=== PATIENT | female | born 1950 | race Two or more races ===

== ENCOUNTER 2022-09-03 10:02 | Inpatient (IN) | payer MEDICARE, OTHER ==
[~2022-09-03] VITALS: Ht 162.6 cm; Wt 62.1 kg
--- NOTE | 2022-09-03 10:05 | NUR ---
REceived pt 72 yrs female came by julien from home c/o genralized weekness awake and fallow command respiration spont and easy
--- NOTE | 2022-09-03 10:19 | NUR ---
to ct scan of head
--- NOTE | 2022-09-03 10:28 | NUR ---
DR DOROTEO PRADHAN (ONCO) SENT THE PATIENT TO ER DUE TO HGB 5.9 DR PRADHAN TEL [phone] HOME HEALTH NURSE MICHELLE: TEL [phone] CHAVEZ. HOME HEALTH NURSE WILL CALL BACK AND PROVIDE DR CHAVEZ'S PHONE NUMBER.
--- NOTE | 2022-09-03 10:31 | NUR ---
DR JESSI CHAVEZ TEL [phone] THE PATIENT`S HH IS [facility]
--- NOTE | 2022-09-03 10:40 | NUR ---
INSERTED ANGO CATHETER G 18 ON RT FOR ARM UNBLE TO DROW BLOOD
--- NOTE | 2022-09-03 11:18 | NUR ---
covid antigen swab done and sent to the lab
[2022-09-03 11:21] LABS: ALANINE AMINOTRANSFERASE 48 U/L (12-78); ALBUMIN 3.6 g/dL (3.4-5.0); ALKALINE PHOSPHATASE 70 U/L (46-116); ASPARTATE AMINOTRANSFERASE 20 U/L (15-37); BILIRUBIN,DIRECT 0.1 mg/dL (0.0-0.2); BILIRUBIN,TOTAL 0.4 mg/dL (0.2-1.0); CALCIUM, SERUM 8.7 mg/dL (8.5-10.1); CARBON DIOXIDE 23 mmol/L (21-32); CHLORIDE 106 mmol/L (98-107); CREATININE 1.9 mg/dL (0.6-1.3); GLUCOSE 151 mg/dL (74-106); POTASSIUM 4.4 mmol/L (3.5-5.1); SODIUM SERUM 141 mmol/L (136-145); TOTAL PROTEIN, SERUM 6.8 g/dL (6.4-8.2); UREA NITROGEN, BLOOD 31 mg/dL (7-18)
--- NOTE | 2022-09-03 11:30 | NUR ---
MOVE SHEET SUBMITTED.
--- NOTE | 2022-09-03 12:20 | NUR ---
MID LINE G18 INSERTED BY PICC LINE NURSE RN AT BED SIDE PT TOLORATED PROCEDURE
[2022-09-03 12:43] LABS: BASOPHILS % (AUTO) 0.7 % (0.0-2.0); EOSINOPHILS % (AUTO) 1.4 % (0.0-6.0); LYMPHOCYTES # (AUTO) 1.4 K/uL (0.8-4.8); LYMPHOCYTES % (AUTO) 24.2 % (20.0-44.0); MEAN CORPUSCULAR HGB CONC 33 g/dl (31.0-36.0); MEAN CORPUSCULAR VOLUME 92 fL (82-100); MONOCYTES # (AUTO) 0.5 K/uL (0.1-1.30); NEUTROPHILS # (AUTO) 3.8 K/uL (1.8-8.9); NEUTROPHILS % (AUTO) 65.7 % (43.0-81.0); PLATELET COUNT (AUTO) 232 K/uL (150-450); RED BLOOD CELL COUNT(AUTO) 2.14 MIL/uL (4.0-5.2); WHITE BLOOD COUNT (AUTO) 5.8 K/uL (4.3-11.0)
[2022-09-03 12:45] LABS: HEMATOCRIT 20 % (33-45); HEMOGLOBIN 6.4 g/dL (11.5-14.8)
--- NOTE | 2022-09-03 12:53 | NUR ---
[facility] CALLED CONSTRUCTION CONSULTANT PAGED.
--- NOTE | 2022-09-03 13:28 | NUR ---
Room assigned 310-1
--- NOTE | 2022-09-03 13:32 | NUR ---
unable to do swallow evaluation pt refused to drink and to try
--- NOTE | 2022-09-03 13:46 | NUR ---
HAND OFF MAURO.Maximo RN TO YUDY 310-1 VIA NIKO KOTHARI VS NO S&S OF ACTIVE BLEEDIND
--- NOTE | 2022-09-03 13:51 | NUR ---
ROOM 310-1
--- NOTE | 2022-09-03 13:59 | NUR ---
CALLED EITAN ([phone])FOR CONSENT FOR BLOOD TRANSFUTION CONSENT
--- NOTE | 2022-09-03 14:00 | NUR ---
Susan kim in JONATHAN - 09/03/22 at 1429 by HERNESTO PHONE %# FOR EITAN WAS LEFT MASSGE
--- NOTE | 2022-09-03 14:29 | NUR ---
PHONE NUMBER FOR EITAN WAS
[2022-09-03] MEDS ORDERED: SITA1TAB2 PO (14:59)
[2022-09-03] MEDS ORDERED: ROSU40TA23 PO (14:59)
[2022-09-03] MEDS ORDERED: EPOE200011 SQ (14:59)
[2022-09-03] MEDS ORDERED: LISI2.5T2 PO (14:59)
[2022-09-03] MEDS ORDERED: APIX2.5T PO (14:59)
[2022-09-03] MEDS ORDERED: TAMS-12 PO (14:59)
[2022-09-03] MEDS ORDERED: METO25TA20 PO (14:59)
[2022-09-03] MEDS ORDERED: ZOLP10TA2 PO (14:59)
[2022-09-03] MEDS ORDERED: PANT40TA49 PO (14:59)
[2022-09-03] MEDS ORDERED: MYRBETRIQ PO (14:59)
[2022-09-03] MEDS ORDERED: IMIP25TA6 PO (14:59)
[2022-09-03] MEDS ORDERED: JAKAFI PO (14:59)
[2022-09-03] MEDS ORDERED: ONDANSETRON HCL/PF 4 MG/2 ML VIAL IVP PRN (15:00)
[2022-09-03] MEDS ORDERED: Z GUARD REMEDY 4 OZ OINT TP PRN (15:00)
[2022-09-03] MEDS ORDERED: MAG HYDROX/AL HYDROX/SIMETH 30 ML UDC PO PRN (15:00)
[2022-09-03] MEDS ORDERED: MAGNESIUM HYDROXIDE 30 ML UDC PO PRN (15:00)
[2022-09-03] MEDS ORDERED: ACETAMINOPHEN 325 MG TABLET PO PRN (15:00)
--- NOTE | 2022-09-03 15:00 | NUR ---
ms rn received a new admission from ed, awake,oriented x2,mexican speaking lady, came in w/ low hemoglobin, w/c repeated and it was 6.4 at this time, respirations even and unlabored,on room air w/ adequate saturation,denies pain at this time, will monitor patient.
[2022-09-03 16:05] VITALS: BP 108/81
--- NOTE | 2022-09-03 19:47 | NUR ---
MS RN OPENING NOTES: RECEIVED PATIENT AWAKE IN BED, ACCOMPANIED BY FAMILY, BED IN LOW POSITION CALL LIGHTS WITHIN REACH, NO COMPLAIN OF PAIN AND DISCOMFORT AT THIS TIME, ON ROOM AIR SATURATING WELL, PATIENT IS A/O X3 ABLE TO MAKE NEEDS KNOWN, ON BED REST, IV LINE AT BHUMIKA ML WITH ONGOING 0.9NSS@75ML/HR INFUSING WELL, NO BLEEDING WAS OBSERVED, WITH PENDING BT AWAITING FROM BLOOD BANK, PATIENT KEPT CLEAN AND DRY ALL NEEDS MET WILL CONTINUE TO MONITOR.
[2022-09-03 20:00] VITALS: BP 130/66
[2022-09-03 20:08] VITALS: BP 130/66
[2022-09-03] MEDS: IV NS 0.9% 1,000 ML IV PRN (20:22)
[2022-09-03 22:15] LABS: BAND % (MANUAL) 4 % (0.0-5.0); EOSINOPHILS % (MANUAL) 1 % (0-4); LYMPHOCYTES % (MANUAL) 21 % (16-48); MONOCYTES % (MANUAL) 6 % (0-11.0); NEUTROPHILS % (MANUAL) 68 (42-76)
[2022-09-04] VITALS (9 sets, daily range): BP systolic 105–165; BP diastolic 50–71
--- NOTE | 2022-09-04 02:20 | NUR ---
RN NOTES: STARTED BLOOD TRANSFUSION @70CC/HR , PATIENT INFORMATION VERIFIED BY TWO RN (RAHEEL), INITIAL V/S ARE NOTED FOLLOWS: BP-113/50, TEMP-97% RA, HR-97, RR-18, TEMP-97.7, PATIENT REMAIN STABLE V/S ARE TAKEN 15 MINUTES AFTER NO REACTION WAS OBSERVED BLOOD TRANSFUSION INCREASE TO 100ML/HR PATIENT TOLERATE NO SOB WAS OBSERVED, WILL CONTINUE TO MONITOR.
--- NOTE | 2022-09-04 05:16 | NUR ---
RN NOTES: BLOOD TRANSFUSION DONE V/S REMAIN STABLE NO BLEEDING WAS OBSERVED, BLOOD HGB AND HCT TO CHECK AFTER 2 HOURS WILL CONTINUE TO MONITOR.
--- NOTE | 2022-09-04 06:35 | NUR ---
MS RN CLOSING NOTES: PATIENT AWAKE IN BED, BED IN LOW POSITION, CALL LIGHTS WITHIN REACH, NO COMPLAIN OF PAIN AND DISCOMFORT AT THIS TIME, ON ROOM AIR SATURATING WELL, PATIENT IS A/O X3 ABLE TO MAKE NEEDS KNOWN IV LINE AT BHUMIKA ML WITH ONGOING 0.1IFI242VS/HR INFUSING WELL, PATIENT IS S/P BLOOD TRANSFUSION OF 1PRBC NO BLEEDING WAS OBSERVED, PATIENT KEPT KEPT CLEAN AND DRY ALL NEEDS MET WILL CONTINUE TO MONITOR.
--- NOTE | 2022-09-04 07:35 | NUR ---
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 PATIENT IS S/P BLOOD TRANSFUSION OF 1PRBC, TOLERATED WELL, AWAITING BLOOD DRAW FOR HGB CHECK. WITH IV LINE AT BHUMIKA ML WITH ONGOING 0.9 NS @ 75ML/HR INFUSING WELL. BED IN LOW POSITION, CALL LIGHTS WITHIN REACH, NO COMPLAIN OF PAIN AND DISCOMFORT AT THIS TIME. WILL CONTINUE TO MONITOR THE PATIENT FOR ALISON.
[2022-09-04 08:16] LABS: BASOPHILS % (AUTO) 0.7 % (0.0-2.0); EOSINOPHILS % (AUTO) 1.9 % (0.0-6.0); HEMATOCRIT 26 % (33-45); HEMOGLOBIN 8.6 g/dL (11.5-14.8); LYMPHOCYTES # (AUTO) 0.5 K/uL (0.8-4.8); LYMPHOCYTES % (AUTO) 14.2 % (20.0-44.0); MEAN CORPUSCULAR HGB CONC 33 g/dl (31.0-36.0); MEAN CORPUSCULAR VOLUME 90 fL (82-100); MONOCYTES # (AUTO) 0.3 K/uL (0.1-1.30); MONOCYTES % (AUTO) 8.7 % (2.0-12.0); NEUTROPHILS # (AUTO) 2.7 K/uL (1.8-8.9); NEUTROPHILS % (AUTO) 74.5 % (43.0-81.0); PLATELET COUNT (AUTO) 175 K/uL (150-450); RED BLOOD CELL COUNT(AUTO) 2.85 MIL/uL (4.0-5.2); WHITE BLOOD COUNT (AUTO) 3.7 K/uL (4.3-11.0)
[2022-09-04 08:21] LABS: CALCIUM, SERUM 8.4 mg/dL (8.5-10.1); CARBON DIOXIDE 22 mmol/L (21-32); CHLORIDE 108 mmol/L (98-107); CREATININE 1.9 mg/dL (0.6-1.3); GLUCOSE 201 mg/dL (74-106); MAGNESIUM 1.4 mg/dL (1.8-2.4); PHOSPHORUS 3.5 mg/dL (2.5-4.9); POTASSIUM 4.1 mmol/L (3.5-5.1); SODIUM SERUM 141 mmol/L (136-145); UREA NITROGEN, BLOOD 31 mg/dL (7-18)
[2022-09-04] MEDS: Magnesium 1GM/D5W 100ML PREMIX 100 ML IV SCH ×2 (11:36→13:01)
--- NOTE | 2022-09-04 13:38 | NUR ---
PT IS CONFUSED AND COMBATIVE, STARTED HITTING. NOT ABLE TO PERFORM US-KIDNEY EXAM. CHARGE NURSE, JONATHAN AND MERLIN WALDEN WERE INFORMED. RN WILL NOTIFY THE ORDERING MD.
[2022-09-04] MEDS: IV NS 0.9% 1,000 ML IV PRN (18:37)
--- NOTE | 2022-09-04 19:00 | NUR ---
MS RN CLOSING NOTES: PATIENT AWAKE IN BED, A/O X2-3, PRYDEINIG SPEAKING, CHARGE NURSE VETERINARY SURGERY TECHNICIAN. PATIENT IS S/P BLOOD TRANSFUSION OF 1PRBC, TOLERATED WELL, RECENT HGB RESULTED TO 8.6 WITH IV LINE AT BHUMIKA ML WITH ONGOING 0.9 NS @ 75ML/HR INFUSING WELL. BED IN LOW POSITION, CALL LIGHTS WITHIN REACH, NO COMPLAIN OF PAIN AND DISCOMFORT AT THIS TIME. WILL BE ENDORSED TO PM SHIFT NURSE FOR ALISON.
--- NOTE | 2022-09-04 19:30 | NUR ---
MS RN OPENING NOTE RECEIVED PATIENT FROM AM NURSE; PATIENT IN BED, A/O X 1-2, [place] SPEAKING BUT RESPONSIVE; S/P 1 PRBC BLOOD TRANFUSION; STABLE ON ROOM AIR, BREATHING EVENLY AND NO S/S OF DISTRESS NOTED; WITH IV ACCESS AT BHUMIKA ML RUNNING WITH NORMAL SALINE AT 75 ML/HR; SAFETY MEASURES IMPLEMENTED, BED LOCKED IN LOWEST POSITION, SIDE RAILS UP X 4, CALL LIGHT AND TABLE WITHIN REACH; WILL CONTINUE TO MONITOR THROUGHOUT SHIFT
[2022-09-05] MEDS: IV NS 0.9% 1,000 ML IV PRN (03:38)
[2022-09-05 04:10] VITALS: BP 142/71
--- NOTE | 2022-09-05 06:52 | NUR ---
MS RN CLOSING NOTE PATIENT IN BED, A/O X 1-2, CITIZEN OF [place] AND [place] SPEAKING BUT RESPONSIVE TO VERBAL STIMULI; S/P 1 PRBC BLOOD TRANFUSION; STABLE ON ROOM AIR, BREATHING EVENLY AND NO S/S OF DISTRESS NOTED; WITH IV ACCESS AT BHUMIKA ML G# RUNNING WITH NORMAL SALINE AT 75 ML/HR; PATIENT'S NEEDS ATTENDED; MONITORED PATIENT ACCORDINGLY; SAFETY MEASURES IMPLEMENTED, BED LOCKED IN LOWEST POSITION, SIDE RAILS UP X 4, CALL LIGHT AND TABLE WITHIN REACH; WILL ENDORSE TO AM NURSE FOR ALISON.
--- NOTE | 2022-09-05 07:28 | NUR ---
MS RN OPENING NOTE RECEIVED PATIENT IN BED, A/O X 1-2, TURKISH SPEAKING BUT RESPONSIVE ; STABLE ON ROOM AIR, NO SOB OR DISTRESS NOTED ; WITH IV ACCESS AT BHUMIKA ML RUNNING WITH NORMAL SALINE AT 75 ML/HR; SAFETY MEASURES IMPLEMENTED, BED LOCKED IN LOWEST POSITION, SIDE RAILS UP X 4, CALL LIGHT AND TABLE WITHIN REACH; WILL CONTINUE TO MONITOR FOR ANY CHANGES
[2022-09-05 07:53] LABS: BASOPHILS % (AUTO) 0.5 % (0.0-2.0); EOSINOPHILS % (AUTO) 1.4 % (0.0-6.0); HEMATOCRIT 24 % (33-45); LYMPHOCYTES # (AUTO) 0.4 K/uL (0.8-4.8); LYMPHOCYTES % (AUTO) 10.1 % (20.0-44.0); MEAN CORPUSCULAR HGB CONC 33 g/dl (31.0-36.0); MEAN CORPUSCULAR VOLUME 91 fL (82-100); MONOCYTES # (AUTO) 0.3 K/uL (0.1-1.30); MONOCYTES % (AUTO) 8.1 % (2.0-12.0); NEUTROPHILS # (AUTO) 3.3 K/uL (1.8-8.9); NEUTROPHILS % (AUTO) 79.9 % (43.0-81.0); PLATELET COUNT (AUTO) 143 K/uL (150-450); RED BLOOD CELL COUNT(AUTO) 2.63 MIL/uL (4.0-5.2); WHITE BLOOD COUNT (AUTO) 4.1 K/uL (4.3-11.0)
[2022-09-05 08:00] VITALS: BP 112/56
[2022-09-05 08:12] LABS: CARBON DIOXIDE 19 mmol/L (21-32); CHLORIDE 108 mmol/L (98-107); CREATININE 1.6 mg/dL (0.6-1.3); GLUCOSE 197 mg/dL (74-106); POTASSIUM 3.9 mmol/L (3.5-5.1); SODIUM SERUM 139 mmol/L (136-145); UREA NITROGEN, BLOOD 24 mg/dL (7-18)
--- NOTE | 2022-09-05 11:00 | NUR ---
RN NOTES CALLED FAMILY REGARDING THE DISCHARGE ORDER AND SPOKE WITH DAUGHTER AND ASKING TO ARRANGE TRANSPORTATIION , DISTRIBUTION ENGINEER AWARE AND WILL ARRANGE TRANSPO .
[2022-09-05 16:00] VITALS: BP 128/63
--- NOTE | 2022-09-05 16:42 | NUR ---
JACQUARD LOOM CARPET WEAVER NOTES PATIENT WAS SEEN BY MD AND WITH ORDER FOR DISCHARGE , STABLE AT THIS TIME AND MEDICALLY CLEARED TO GO HOME , DISCHARGE PAPERS WERE PREPARED AND PATIENT AWARE AND DAUGHTER CALLED , REQUESTING FOR TRANSPORTATION AND MECHANICAL ENGINEERING LECTURER MADE AWARE . DISCHARGE INSTRUCTIONS TO THE DAUGHTER PROVIDED , FOLLOW UP WITH PCP, MEDICATIONS AND WHEN TO CALL 911 IN CASE OF EMERGENCY . ALL BELONGINGS WERE ACCOUNTED AND BELONGINGS FORM AND DISCHARGE INSTRUCTIONS WAS SIGNED BY TWO RNS PATIENT IS WITH CONFUSION AND UNABLE TO SIGN. IV ACCESS REMOVED AND ID BADGE ,PICKED UP BY AMBULANCE AROUND 1600 AND REPORT GIVEN TO CLIENT SERVICES ACCOUNT MANAGER . PATIENT WITH NO SOB OR DISTRESS NOTED AND NO C/O OF PAIN AND DISCOMFORT , LEFT IN A STABLE CONDITION
== END 2022-09-05 17:01 | disposition home health service (06) | DRG 811 ==
LOC: ER 10:06 → TELE 14:14 → MED 17:17
PROVIDERS: ADMIT Internal Medicine; ATTEND Internal Medicine
PROC: 05HA33Z Insertion of Infusion Device into Left Brachial Vein, Percutaneous Approach (ICD-10-PCS; principal; 2022-09-03)
PROC: 30233N1 Transfusion of Nonautologous Red Blood Cells into Peripheral Vein, Percutaneous Approach (ICD-10-PCS; 2022-09-04)
DX: D64.81 Anemia due to antineoplastic chemotherapy (principal); G93.41 Metabolic encephalopathy; N17.0 Acute kidney failure with tubular necrosis; C95.90 Leukemia, unspecified not having achieved remission; Z79.01 Long term (current) use of anticoagulants; T45.1X5A Adverse effect of antineoplastic and immunosuppressive drugs, initial encounter; Y92.89 Other specified places as the place of occurrence of the external cause; D63.8 Anemia in other chronic diseases classified elsewhere; R51.9 Headache, unspecified; E11.9 Type 2 diabetes mellitus without complications; E78.5 Hyperlipidemia, unspecified; G93.89 Other specified disorders of brain; I10 Essential (primary) hypertension; Z53.20 Procedure and treatment not carried out because of patient's decision for unspecified reasons; Z79.899 Other long term (current) drug therapy
CPT/HCPCS: 36415; 70450-TC; 71045-TC; 80048-TC; 80076-TC; 82962-TC; 83735-TC; 84100-TC; 84484-TC; 85025-TC; 86850-TC; 87081-TC; 97530-TC; A4223; C9803; G0378; J3475; J7030; J7040; P9016